=== PATIENT | female | born 1980 | race Two or more races ===

== ENCOUNTER 2025-06-24 08:26 | Emergency (ER) | payer MEDICAID, SELFPAY ==
--- NOTE | 2025-06-24 08:44 | XR_ITS ---
Examination: Pelvic ultrasound, transabdominal, complete Technique: Transabdominal ultrasound of the pelvis performed using grayscale imaging Date and time of exam: June 24, 2025, 1212 hours INDICATIONS: Right lower abdominal pain beginning 2 days ago, hysterectomy history FINDINGS: Absent uterus Ovaries obscured by bowel gas IMPRESSION: Limited study Ovaries obscured by bowel gas
[2025-06-24 08:45] VITALS: BP 126/86; PULSE 73; RESP 16; TEMP 36.5; O2SAT 99
--- NOTE | 2025-06-24 09:02 | PD.EDABDPN ---
ED Abdominal Pain RME/HPI General Chief Complaint: Abdominal Pain Stated complaint: RT SIDE ABD PAIN Time seen by provider: 06/24/25 08:27 Arrival date/time: 06/24/25 08:26 45-year-old female with a history of hysterectomy presents to the emergency room with a chief complaint of right pelvic and abdominal pain x 5 days Source: patient Mode of arrival: ambulatory Limitations: no limitations Related Data Home Medications ?Medication ?Instructions ?Recorded ?Confirmed norgestrel 0.3 mg-ethinyl 1 tab PO QDAY 03/29/23 03/29/23 estradiol 30 mcg tablet (Cr (28)) Previous Rx's ?Medication ?Instructions ?Recorded acetaminophen 300 mg-codeine 15 mg 1 tab PO BID PRN pain #14 tabs 03/31/23 tablet acetaminophen 300 mg-codeine 15 mg 1 tab PO Q8H PRN pain #14 tabs 03/31/23 tablet acetaminophen 650 mg 650 mg PO Q12H #20 tabs 03/31/23 tablet,extended release acetaminophen 650 mg 650 mg PO Q12H #30 tabs 03/31/23 tablet,extended release docusate sodium 100 mg capsule 100 mg PO BID #30 caps 03/31/23 (Colace) docusate sodium 100 mg capsule 100 mg PO BID #30 caps 03/31/23 (Colace) doxycycline monohydrate 100 mg 100 mg PO BID #30 caps 03/31/23 capsule doxycycline monohydrate 100 mg 100 mg PO BID #30 caps 03/31/23 capsule ibuprofen 800 mg tablet 800 mg PO Q8H PRN pain #30 tabs 03/31/23 ibuprofen 800 mg tablet 800 mg PO Q8H PRN pain #30 tabs 03/31/23 metronidazole 500 mg tablet 500 mg PO BID #30 tabs 03/31/23 metronidazole 500 mg tablet 500 mg PO Q12H #30 tabs 03/31/23 metronidazole 500 mg tablet 500 mg PO Q12H #30 tabs 03/31/23 ondansetron 4 mg disintegrating 4 mg PO Q8H PRN nausea and 03/31/23 tablet vomiting #14 tabs Allergies Allergy/AdvReac Type Severity Reaction Status Date / Time No Known Allergies Allergy Verified 06/24/25 08:28 Review of Systems Review of Systems Systems Reviewed: All systems reviewed, normal except as documented Constitutional Constitutional: Reports system reviewed and no additional complaints, except as documented, Denies fatigue, Denies fever(s), Denies headache(s) and Denies weakness Eyes Eyes: Reports system reviewed and no additional complaints, except as documented, Denies blurry vision and Denies change in vision ENT Ears, Nose, Mouth, and Throat: Reports system reviewed and no additional complaints, except as documented, Denies otalgia, Denies headache(s), Denies nasal congestion, Denies throat swelling and Denies vertigo Cardiovascular Cardiovascular: Reports system reviewed and no additional complaints, except as documented, Denies chest pain, Denies dyspnea and Denies dyspnea on exertion Respiratory Respiratory: Reports system reviewed and no additional complaints, except as documented, Denies chest congestion, Denies cough, Denies dyspnea, Denies dyspnea on exertion and Denies wheezing Gastrointestinal Gastrointestinal: Reports system reviewed and no additional complaints, except as documented, Reports abdominal pain, Reports cramping, Reports nausea and Denies vomiting Genitourinary Genitourinary: Reports system reviewed and no additional complaints, except as documented, Denies abnormal vaginal bleeding, Reports dysuria and Reports pelvic pain Musculoskeletal Musculoskeletal: Reports system reviewed and no additional complaints, except as documented and Denies back pain Integumentary/Breasts Skin/Breast: Reports system reviewed and no additional complaints, except as documented and Denies wounds Neurologic Neurologic: Reports system reviewed and no additional complaints, except as documented, Denies confusion, Denies headache(s), Denies lack of coordination, Denies vertigo and Denies weakness Psychiatric Psychiatric: Reports system reviewed and no additional complaints, except as documented, Denies anxiety, Denies confusion, Denies depression, Denies paranoia, Denies suicidal ideation and Denies tactile hallucinations Endocrine Endocrine: Reports system reviewed and no additional complaints, except as documented and Denies fatigue Hematologic/Lymphatic Hematologic/Lymphatic: Reports system reviewed and no additional complaints, except as documented and Denies lymphadenopathy Allergic/Immunologic Allergic/Immunologic: Reports system reviewed and no additional complaints, except as documented, Denies throat swelling, Denies urticaria and Denies wheezing Past Medical History Past Medical History NEUROLOGIC: Negative Neurological Disorders, Cerebrovascular Accident, Transient Ischemic Attacks (TIA), Dementia, Alzheimer's Disease, Parkinson's Disease, Brain Tumor, Meningitis, Seizures, Epilepsy, Multiple Sclerosis, Cerebral Palsy, Amyotrophic Lateral Sclerosis (ALS/No Gehrig's), Guillain-Red Lion Syndrome, Spina Bifida, Paralysis, Peripheral Neuropathy, Londono's Palsy, Subdural Hematoma, Migraine, Head Trauma, Spinal Cord Injury or Traumatic Brain Injury CARDIAC: Negative Cardiac Disorders, Myocardial Infarction, Cardiac Arrhythmia, Atrial Fibrillation, Angina, Heart Murmur, Coronary Artery Disease, Atherosclerotic Heart Disease, Peripheral Vascular Disease, Hypercholesterolemia, Aneurysm, Congestive Heart Failure, Congenital Heart Disease, Valvular Heart Disease, Rheumatic Fever, Cardiomyopathy, Edema, Pericarditis, Cellulitis, Deep Vein Thrombosis, Hypertension, Hypotension or Varicose Veins RESPIRATORY: Negative Chronic Obstructive Pulmonary Disease (COPD), Asthma, Bronchitis, Emphysema, Pneumonia, Pulmonary Fibrosis, Cystic Fibrosis, Tuberculosis, Pulmonary Embolism, Pulmonary Edema or Sleep Apnea GASTROINTESTINAL: Negative Gastrointestinal Disorders, Hepatitis, Cirrhosis, Pancreatitis, Celiac Disease, Gall Bladder Disease, Gastrointestinal Bleed, Esophageal Varices, Mcneill's Esophagus, Colitis, Ulcerative Colitis, Diverticulitis, Diverticulosis, Ulcer, Colorectal Cancer, Irritable Bowel, Crohn's Disease, Obstructive Bowel, Hiatal Hernia, Hemorrhoids, Gastroesophageal Reflux Disease or Obesity GENITOURINARY: Positive Genitourinary Disorders and Kidney Stones; Negative Renal Disease, Polycystic Kidney Disease, Neurogenic Bladder, Inguinal Hernia, Dialysis, Prostate Cancer or Benign Prostatic Hyperplasia REPRODUCTIVE: Positive Previous Pregnancies; Negative Breast Cancer, Endometriosis, Genital Herpes, Gonorrhea, Pelvic Inflammatory Disease, Syphilis, Testicular Cancer or Uterine Prolapse MUSCULOSKELETAL: Negative Musculoskeletal Disorders, Muscular Dystrophy, Myasthenia Gravis, Marfan's Syndrome, Bone Cancer, Arthritis, Rheumatoid Arthritis, Osteoporosis, Degenerative Disk Disease, Gout, Scoliosis, Carpal Tunnel Syndrome, Fibromyalgia, Fractures, Degenerative Joint Disease, Osteomyelitis or Poliovirus ENT: Negative Cataracts, Glaucoma, Blind, Retinal Detachment, Macular Degeneration, Ear Infection, Deafness, Head Trauma or Eye Prosthesis ENDOCRINE: Negative Endocrine Disorders, Diabetes Mellitus Type 1, Diabetes Mellitus Type 2, Hypoglycemia, Renault's Syndrome, Noe's Disease, Hyperthyroidism, Hypothyroidism, Parathyroid Disease, Pituitary Disease, Systemic Lupus Erythematosus, Syndrome of Inappropriate Antidiuretic Hormone (SIADH), Adrenal Disease or Graves' Disease HEMATOLOGIC: Negative Blood Disorders, Anemia, Leukemia, Hemophilia, Thalassemia, Sickle Cell Disease or Clotting Problems PSYCHO/SOCIAL: Negative Psychiatric Problems, Schizophrenia, Recreational Drug Use, Bipolar Disorder, Depression, Anxiety, Behavior Problems, Self-Mutilation, Attention Deficit Disorder, Attention Deficit Hyperactivity Disorder, Depression, Post Traumatic Stress Disorder or Eating Disorder OTHER HISTORY: Positive Chicken Pox and Measles; Negative Hospitalization, Autoimmune Disease, Down Syndrome, Autism, Developmental Delay, Shingles, Falls, Blood Transfusions, Blood Transfusion Reaction, Anesthesia Reactions, Organ Transplant, Chemotherapy, Radiation Therapy, Hyperbaric Therapy, MRSA, VRSA, Vancomycin-Resistant Enterococci, Human Immunodeficiency Virus (HIV), Mumps, Rubella (Br[place] Measles), Pertussis, Clostridium Difficile, Cancer, Breast Cancer, Cervical Cancer, Colorectal Cancer, Lung Cancer, Ovarian Cancer, Prostate Cancer or Testicular Cancer Family History FAMILY HISTORY: Positive Family Cardiac Disorders and Family Surgery; Negative Family Psychiatric Problems, Family Respiratory Disorders, Family Gastrointestinal Problems, Family Cancer or Family Anesthesia Reaction Surgical History SURGICAL: Positive Arthroscopy (left knee), Hysterectomy and Tubal Ligation; Negative Cardiac Surgery, Open Heart Surgery, Coronary Artery Bypass Graft, Valve Replacement, Vascular Surgery, Coronary Stent, Cardiac Catheterization, Pacemaker, Angiogram, Endocrine Surgery, Thyroidectomy, Ear Surgery, Tympanostomy Tube, Eye Surgery, Nose Surgery, Oral Surgery, Tonsillectomy, Adenoidectomy, Cochlear Implant, Corneal Transplant, Throat Surgery, Abdominal Surgery, Tracheostomy, Gastric Bypass Surgery, Gastrostomy, Bowel Surgery, Nephrectomy, Transurethral Resection, Joint Replacement, Amputation, Open Reduction Internal Fixation, Neurologic Surgery, Brain Shunt, Mastectomy, Lumpectomy, Section or Organ Transplant Social History SMOKING STATUS: Never smoker ED Exam General Limitations: Present no limitations General appearance: Present alert and in no apparent distress Head Head exam: Present atraumatic Eye Eye exam: Present normal appearance, PERRL and EOMI ENT ENT exam: Present normal exam, normal oropharynx and mucous membranes moist Neck Neck exam: Present normal inspection, full ROM and trachea midline Chest Chest inspection: Present normal inspection and symmetric chest wall rise Respiratory Respiratory exam: Present normal lung sounds bilaterally Cardiovascular Cardiovascular exam: Present regular rate, normal rhythm and normal heart sounds Abdominal Exam Abdominal exam: Present soft, tenderness and normal bowel sounds; Absent Raines's sign or tenderness at McBurney's Point Abdominal tenderness: Present RLQ and mild Extremities Exam Extremities exam: Present normal inspection and full ROM Back Exam Back exam: Present normal inspection and full ROM Neurological Exam Neurological exam: Present alert, oriented X3 and CN II-XII intact Psychiatric Psychiatric exam: Present normal affect and normal mood Skin Skin exam: Present warm, dry, intact and normal color Course Quality Measures none Orders Category Date Time Status US abdomen limited Stat Exams 06/24/25 09:03 Completed US pelvic complete Stat Exams 06/24/25 08:44 Completed CBC Stat Lab 06/24/25 09:25 Completed CMP [Comprehensive Metabolic Panel] Stat Lab 06/24/25 09:25 Completed HCG Qualitative,Urine Stat Lab 06/24/25 08:52 Completed Lipase Stat Lab 06/24/25 09:25 Completed UA [Urinalysis] Stat Lab 06/24/25 08:52 Completed Urine Culture Stat Lab 06/24/25 08:52 Received Vital Signs Vital signs: Vital Signs Temperature 97.7 F 06/24/25 08:45 Pulse Rate 73 06/24/25 08:45 Respiratory Rate 16 06/24/25 08:45 Blood Pressure 126/86 H 06/24/25 08:45 Pulse Oximetry (%) 99 06/24/25 08:45 Oxygen Delivery Method Room Air 06/24/25 08:45 Abdominal Pain MDM MDM Narrative MDM Narrative:: 45-year-old female with a history of hysterectomy presents to the emergency room with a chief complaint of right pelvic and abdominal pain x 5 days Patient is hemodynamically stable and in no apparent distress Physical examination shows right pelvic tenderness with palpation. There is no right lower quadrant tenderness or any tenderness to McBurney's point with palpation. Ultrasound of the pelvis was completed and shows no acute findings. The patient has a history of a hysterectomy. CBC CMP were all within normal limits. Urinalysis was within normal limits Patient was discharged and educated to follow-up with primary care provider in the next 24 to 48 hours and return to the emergency room for any evidence of worsening signs or symptoms Patient data External records reviewed:: [facility] previous records Clinical information provided by:: patient Social determinants that could affect healthcare access:: none Patient has the following chronic illnesses:: No chronic illness How is presenting disease/condition affected by chronic disease/condition?: no chronic disease Evaluation data The following diagnostics were reviewed and interpreted by me:: lab results and radiology exam(s) Lab and/or radiology exams considered but not ordered:: Labs and radiology exams considered and ordered Interpretation Summary: Ultrasound pelvis-FINDINGS: Absent uterus Ovaries obscured by bowel gas IMPRESSION: Limited study Ovaries obscured by bowel gas Ultrasound abdomen-Findings: No sonographic visualization appendix IMPRESSION: No sonographic visualization appendix Medications / Prescriptions Medications or Prescriptions considered but not ordered:: No medication Medication administrations:: No medication given Consultations Consultation(s) initiated? (list below): No Diagnosis Differential diagnosis abdominal pain: abdominal pain, acute appendicitis, constipation, gastroenteritis and other (Pelvic pain) Most likely diagnosis given after review of the tests above:: Pelvic pain Admission Indicated Admission indicated?: not indicated Admission Request Was there a request for admission?: No Disposition Plan Disposition Plan: Discharge Discharge Attestation Discharge Attestation: The patient and all family members were given an opportunity to ask questions and understood the discharge instructions. Discharge instructions specifically effects, indications for sooner follow up or return to the emergency department, and the expected course of current diagnosis. Patient condition: Stable Discharge Plan Plan Patient Disposition: HOME (Self Care) Discharge Disposition comment: Stable Prescriptions/Referrals Prescriptions/Med Rec: No Action Cr (28) 0.3-30 mg-mcg Tablet 1 tab PO QDAY acetaminophen 650 mg tablet extended release 650 mg PO Q12H Qty: 20 0RF acetaminophen-codeine 300-15 mg tablet 1 tab PO Q8H PRN (Reason: pain) Qty: 14 0RF ibuprofen 800 mg tablet 800 mg PO Q8H PRN (Reason: pain) Qty: 30 0RF metronidazole 500 mg tablet 500 mg PO Q12H Qty: 30 0RF doxycycline monohydrate 100 mg capsule 100 mg PO BID Qty: 30 0RF docusate sodium [Colace] 100 mg capsule 100 mg PO BID Qty: 30 0RF ondansetron 4 mg tablet,disintegrating 4 mg PO Q8H PRN (Reason: nausea and vomiting) Qty: 14 0RF acetaminophen-codeine 300-15 mg tablet 1 tab PO BID PRN (Reason: pain) Qty: 14 0RF metronidazole 500 mg tablet 500 mg PO BID Qty: 30 0RF doxycycline monohydrate 100 mg capsule 100 mg PO BID Qty: 30 0RF ibuprofen 800 mg tablet 800 mg PO Q8H PRN (Reason: pain) Qty: 30 0RF acetaminophen 650 mg tablet extended release 650 mg PO Q12H Qty: 30 0RF docusate sodium [Colace] 100 mg capsule 100 mg PO BID Qty: 30 0RF metronidazole 500 mg tablet 500 mg PO Q12H Qty: 30 0RF Referrals: Aly Norton MD [Primary Care Provider, Family Practice] - In 1 week Problem List Clinical Impression: Pelvic pain Patient/Caregiver Discharge Instructions Education Materials: ED Pelvic Pain, Unknown Cause Additional Instructions: Por favor, acuda a cohen m?dico de cabecera en las pr?ximas 24 a 48 horas. Las ecograf?as no mostraron hallazgos agudos. Los an?lisis de rona y orina se encuentran dentro de los l?mites normales. Si observa alg?n empeoramiento de los signos o s?ntomas, regrese inmediatamente a urgencias. Print Language: Pashto Stand Alone Forms: Rocio Award Info., Work/School Release, Patient Portal Info Letter PA/DISTILLATION OPERATOR HELPER Supervising Physician PA/DISTILLATION OPERATOR HELPER Supervising Physician: Dr. Benavides
--- NOTE | 2025-06-24 09:03 | XR_ITS ---
Examination: Abdomen sonogram, Limited Date and time of exam: June 24, 2025, 11:00 a.m. INDICATIONS: Right lower abdominal pain beginning 2 days ago Technique: Real-time welch scale transabdominal sonographic images of the abdomen obtained. Findings: No sonographic visualization appendix IMPRESSION: No sonographic visualization appendix
[2025-06-24 09:13] LABS: Collection Type, Urine Clean Catch; WBC,Urine 0 /hpf (0-5)
[2025-06-24 09:23] LABS: HCG Qualitative,Urine Negative
[2025-06-24 09:25] LABS: Bilirubin,Urine Negative (Negative); Blood,Urine 1+ (Negative); Clarity,Urine Clear (Clear/Hazy); Color,Urine Lt-Yellow (Lt Yel-Yel); Glucose, Urine Negative (Negative); Ketones,Urine Negative (Negative); Leukocyte Esterase,Urine Negative (Negative); Nitrite,Urine Negative (Negative); PH,Urine 6.0 (5.0-7.0); Protein,Urine Negative (Neg - Trace); RBC,Urine 3 /hpf (0-3); Specific Gravity,Urine 1.014 (1.001-1.035); Squamous Epithelial Cell,Urine 2 /hpf (0-5); Urobilinogen,Urine Negative mg/dL (0.0-1.0)
[2025-06-24 09:45] LABS: Basophils # (Auto) 0.0 Thou/mm3 (0.0-0.2); Basophils % (Auto) 1 % (0-2.5); Eosinophils # (Auto) 0.0 Thou/mm3 (0.0-0.5); Eosinophils % (Auto) 1 % (0-10); Hematocrit 40.1 % (36.0-46.0); Hemoglobin 13.7 g/dL (12.0-16.0); Immature Granulocytes Auto 0.01 Thou/mm3 (0.00-0.00); Lymphocytes # (Auto) 1.2 Thou/mm3 (1.0-4.8); Lymphocytes % (Auto) 24 % (10-50); Mean Corpuscular HGB Conc 34.2 g/dl (31.0-37.0); Mean Corpuscular Hemoglobin 32.5 pg (25.0-35.0); Mean Corpuscular Volume 95 fL (80-100); Monocytes # (Auto) 0.3 Thou/mm3 (0.0-0.8); Monocytes % (Auto) 6 % (0-12); Neutrophils # (Auto) 3.5 Thou/mm3 (1.8-7.7); Neutrophils % (Auto) 69 % (37-80); Nucleated Red Blood Cell # 0.00 Thou/mm3 (0.00-0.00); Nucleated Red Blood Cell % 0 /100 WBC (0); Platelet Count 265 Thou/mm3 (140-440); RDW Standard Deviation 44.0 fL (36.4-46.3); Red Blood Count 4.22 Miln/mm3 (4.00-5.20); White Blood Count 5.1 Thou/mm3 (3.6-11.0)
[2025-06-24 10:11] LABS: Alanine Aminotransferase 12 U/L (10-49); Albumin, Serum 4.9 gm/dL (3.5-5.0); Albumin/Globulin Ratio 2.0 (1.2-2.2); Alkaline Phosphatase 90 U/L (46-116); Anion Gap 8 (7-16); Aspartate Amino Transferase 19 U/L (0-34); BUN/Creatinine Ratio 17 Ratio (12-20); Bilirubin,Total 0.6 mg/dL (0.3-1.2); Blood Urea Nitrogen 10 mg/dL (9-23); Calcium 9.4 mg/dL (8.3-10.6); Calcium (Corrected) 9.4 mg/dL (8.5-10.1); Carbon Dioxide 25.7 mMol/L (20.0-31.0); Chloride 108 mMol/L (98-107); Creatinine (Component) 0.6 mg/dL (0.6-1.3); Estimated Creatinine Clearance 76.5 mL/min (>60); Globulin 2.4 gm/dL (2.3-3.5); Glucose 98 mg/dL (74-106); Lipase 38 U/L (12-53); Osmolality,Calculated 282 (275-295); Potassium 4.3 mMol/L (3.4-5.1); Sodium 142 mMol/L (136-145); Total Protein 7.3 gm/dL (5.7-8.2); eGFR > 60 See Note
== END 2025-06-24 11:36 | disposition home or self-care (01) ==
PROVIDERS: Nurse Practitioner Family; Emergency Provider Emergency Medicine; PCP Family Medicine
DX: R10.20 Pelvic and perineal pain unspecified side (principal)
CPT/HCPCS: 36415; 76705; 76856; 80053; 81001; 81025; 83690; 85025; 87086; 99283

== ENCOUNTER 2025-07-19 10:34 | Emergency (ER) | payer MEDICAID, SELFPAY ==
--- NOTE | 2025-07-19 10:40 | EKG_ITS ---
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
[2025-07-19 10:52] VITALS: BP 152/88; PULSE 78; RESP 18; TEMP 37.1; O2SAT 98; BMI 23.1
--- NOTE | 2025-07-19 10:55 | XR_ITS ---
EXAMINATION: PA chest single view TECHNIQUE: Upright PA chest single view Date and time: July 19, 2025, 11:59 a.m. INDICATIONS: Chest pain and dizziness today. FINDINGS: Mild prominence left ventricle No pneumonia or pulmonary edema Mild osteopenia IMPRESSION: No pneumonia or pulmonary edema
--- NOTE | 2025-07-19 10:55 | XR_ITS ---
Examination: Abdomen sonogram, Limited Date and time of exam: 07/19/2025 at 11:08 a.m. INDICATION: Epigastric pain and chest pain beginning to Technique: Real-time welch scale transabdominal sonographic images of the upper abdomen obtained. Findings: The gallbladder is well seen. There is an extremely tiny 3 mm diameter echogenic nodular density adherent to the anterior wall of the gallbladder this is most consistent with a small gallbladder polyp, of no concern no stones are seen gallbladder wall appears normal. Common bile duct measures normal at 0.18 cm the size and the directional color flow within the portal vein and hepatic veins is normal. There is very nice visualization of the head and of about two thirds of the body of the pancreas, which appear normal. The size and configuration of the liver are normal. I do not believe that there is any significant abnormal increased echogenicity, hence I tend to doubt that there is any fatty infiltration. The upper two thirds of the right kidney are visualized and no abnormalities are seen. There is no ascites IMPRESSION: 1. There is a tiny 3 mm diameter cholesterol polyp along the ventral margin of the gallbladder wall, of no concern 2. No gallstones are identified 3. The study is otherwise entirely normal
--- NOTE | 2025-07-19 10:56 | PD.EDCHEST ---
ED Chest Pain RME/HPI General Chief Complaint: Chest Pain Stated Complaint: CHEST PAIN X4 HRS Time Seen by Provider: 07/19/25 10:55 Arrival date/time: 07/19/25 10:34 RME / HPI RME / HPI narrative: 45-year-old female with no known past medical history presents to the ER complaining of epigastric pain rating to her chest which is burning in nature since 6 AM radiating to her left shoulder. Denies any shortness of breath, nausea, vomiting, fever, diarrhea, dysuria. Denies any family history of early cardiac disease. Denies any recent travel, surgeries, immobilizations, history of leg swelling, blood clots. Denies any drinking, smoking, drug use. Related Data Home Medications ?Medication ?Instructions ?Recorded ?Confirmed norgestrel 0.3 mg-ethinyl 1 tab PO QDAY 03/29/23 03/29/23 estradiol 30 mcg tablet (Cr (28)) Previous Rx's ?Medication ?Instructions ?Recorded acetaminophen 300 mg-codeine 15 mg 1 tab PO BID PRN pain #14 tabs 03/31/23 tablet acetaminophen 300 mg-codeine 15 mg 1 tab PO Q8H PRN pain #14 tabs 03/31/23 tablet acetaminophen 650 mg 650 mg PO Q12H #20 tabs 03/31/23 tablet,extended release acetaminophen 650 mg 650 mg PO Q12H #30 tabs 03/31/23 tablet,extended release docusate sodium 100 mg capsule 100 mg PO BID #30 caps 03/31/23 (Colace) docusate sodium 100 mg capsule 100 mg PO BID #30 caps 03/31/23 (Colace) doxycycline monohydrate 100 mg 100 mg PO BID #30 caps 03/31/23 capsule doxycycline monohydrate 100 mg 100 mg PO BID #30 caps 03/31/23 capsule ibuprofen 800 mg tablet 800 mg PO Q8H PRN pain #30 tabs 03/31/23 ibuprofen 800 mg tablet 800 mg PO Q8H PRN pain #30 tabs 03/31/23 metronidazole 500 mg tablet 500 mg PO BID #30 tabs 03/31/23 metronidazole 500 mg tablet 500 mg PO Q12H #30 tabs 03/31/23 metronidazole 500 mg tablet 500 mg PO Q12H #30 tabs 03/31/23 ondansetron 4 mg disintegrating 4 mg PO Q8H PRN nausea and 03/31/23 tablet vomiting #14 tabs pantoprazole 40 mg tablet,delayed 40 mg PO QDAY #30 tabs 07/19/25 release (Protonix) Allergies Allergy/AdvReac Type Severity Reaction Status Date / Time No Known Allergies Allergy Verified 06/24/25 08:28 ED Exam Narrative Physical exam: Constitutional: Patient alert and oriented. Well appearing. No acute distress. Not toxic appearing. Head: Normocephalic, atraumatic. Eyes: Periorbital regions bilaterally normal to inspection. Conjunctiva clear bilaterally. Sclera anicteric bilaterally. Pupils equal, round, reactive to light bilaterally. Extraocular movements intact bilaterally. Mouth/Throat: Mucous membranes moist. No stridor or muffled voice. No trismus. Handling secretions without difficulty. Airway widely patent. Neck: Supple. Trachea midline. No JVD. No nuchal rigidity. Normal range of motion. Respiratory: Normal effort. No accessory muscle use or respiratory distress. Lungs clear to auscultation bilaterally without rhonchi, wheezes, or crackles. Cardiovascular: RRR. Normal S1/S2. No murmurs or rubs. Radial pulses intact bilaterally. Abdomen: Soft. Non-distended. Non-tender throughout. No pulsatile mass. No guarding or rebound. Negative Raines?s sign. Negative McBurney?s point tenderness. Negative Rovsing?s. Back: No midline tenderness or step-offs. No CVA tenderness to palpation bilaterally. Upper Extremities: No gross deformities. Lower Extremities: No gross deformities. No edema or calf tenderness. Neuro: Speech normal. No gross motor or sensory deficits to upper or lower extremities bilaterally. GCS 15. CN II?XII grossly intact. Skin: Warm, dry, normal color. Psych: Normal affect. Cooperative. Normal insight. Course Quality Measures none Orders Category Date Time Status EKG (ED ONLY) *Do not use* NOW Care 07/19/25 10:40 Completed EKG (ED ONLY) *Do not use* NOW Care 07/19/25 16:30 Active CXR [XR chest 1V] Stat Exams 07/19/25 10:55 Completed EKG (ED Only) Stat Exams 07/19/25 10:40 Draft EKG (ED Only) Stat Exams 07/19/25 16:30 Stop Req US gall bladder Stat Exams 07/19/25 10:55 Completed CBC Stat Lab 07/19/25 11:40 Completed CMP [Comprehensive Metabolic Panel] Stat Lab 07/19/25 11:40 Completed HCG Qualitative,Urine Stat Lab 07/19/25 13:11 Completed INR [Prothrombin Time with INR] Stat Lab 07/19/25 11:40 Completed Lipase Stat Lab 07/19/25 11:40 Completed Troponin I Stat Lab 07/19/25 11:40 Completed Troponin I Stat Lab 07/19/25 14:37 Completed UA, C/S IF [Urinalysis, C/S if Indicated] Stat Lab 07/19/25 13:11 Completed Lidocaine 2% Viscous [Xylocaine 2% Viscous] Med 07/19/25 10:55 Discontinued 15 ml PO X1 ONE Ondansetron Odt [Zofran Odt] Med 07/19/25 10:55 Discontinued 4 mg PO X1 ONE mg Hyd/Al Hyd/Aisha Susp [Maalox Susp] Med 07/19/25 10:55 Discontinued 30 ml PO X1 ONE Reevaluation(s) Reevaluation #1: At the time of reassessment prior to discharge, the patient remains alert and oriented ?3 with GCS 15. Vitals are normal, pain is controlled, and the patient is tolerating oral intake without nausea or vomiting. The patient is agreeable to discharge and verbalizes understanding of the diagnosis, studies, treatment plan, medications (including side effects/precautions), and strict ER return precautions as discussed in the ED. All concerns were addressed, and the patient is comfortable with the plan. Time: 18:01 Vital Signs Vital signs: Vital Signs Temperature 98.7 F 07/19/25 10:52 Pulse Rate 78 07/19/25 10:52 Respiratory Rate 18 07/19/25 10:52 Blood Pressure 152/88 H 07/19/25 10:52 Pulse Oximetry (%) 98 07/19/25 10:52 Oxygen Delivery Method Room Air 07/19/25 10:52 PROCEDURES: EKG Interpretation #1: Date of EK07/19/25 Time of EK:49 Rate: 78 Interpretation: Interpreted by me EKG Impression: Normal sinus rhythm and Normal axis Additional EKG comment: No ST elevation, nonspecific ST abnormalities Chest Pain MDM Narrative MDM Narrative:: MDM The patient presents with chest pain. Differential diagnosis includes musculoskeletal chest pain, GERD, bronchial pleurisy, costochondritis, and thoracic radiculopathy. And I suspect patient's symptoms are most likely related to GERD as symptoms completely improved after GI cocktail Less likely etiologies include: PE: Wells low risk, PERC negative. ACS: HEART Score low risk, suggesting low probability of major adverse cardiac event in the next 6 weeks. And troponin negative x 2 heart score is 2. Aortic Dissection: Unlikely given palpable pulses, warm extremities bilaterally, and no radiation of pain. Tamponade: Unlikely given absence of hypotension, muffled heart sounds, JVD, friction rub, narrow pulse pressure ?30, low-voltage EKG, or enlarged cardiac silhouette. Endocarditis: Unlikely as no Feldman criteria present (Laughlin spots, splinter hemorrhages, Osler nodes). CHF: Unlikely given no JVD, peripheral edema, or orthopnea. The patient is clinically well-appearing and stable. Evaluation today does not suggest cardiac ischemia, pulmonary embolism, aortic dissection, or other life-threatening etiology. These diagnoses were considered and excluded clinically and with appropriate studies. Nonetheless, it is understood by both patient and provider that no evaluation can entirely exclude such conditions. Admission was considered but is not indicated based on today?s evaluation and low-risk stratification. The patient is strongly encouraged to follow up with their PMD and/or assistant professor of business within the next 1-2 days. Strict ER return precautions advised for any continued, worsening, or new symptoms or any concerns at all. Patient data External records reviewed:: [facility] previous records Clinical information provided by:: patient Social determinants that could affect healthcare access:: none Patient has the following chronic illnesses:: As noted How is presenting disease/condition affected by chronic disease/condition?: uneffected by Evaluation data The following diagnostics were reviewed and interpreted by me:: lab results, radiology exam(s) and EKG tracing(s) Lab and/or radiology exams considered but not ordered:: Additional Labs and radiology considered, but not ordered as they were not clinically indicated at this time. Interpretation Summary: Labs without severe metabolic or electrolyte abnormality and serial troponins negative x 2 Ketones and blood noted in urine EKG without acute ischemia or arrhythmia, chest x-ray without acute cardiopulmonary abnormality, gallbladder ultrasound without acute findings however there is a 3 mm cholesterol polyp Medications / Prescriptions Medications or Prescriptions considered but not ordered:: I ordered medications based on the patient?s clinical needs and assessment, as documented in the chart. For medications not prescribed, they were not indicated for the patient's current condition, and I determined they were unnecessary at this time to avoid potential risks or complications. Medication administrations:: Medication Administration History Discontinued Medications Al Hydrox/Mg Hydrox/Simethicone (Mg Hyd/Al Hyd/Aisha (Maalox Reg) Susp 30 Ml Udc) 30 ml PO X1 ONE Stop: 07/19/25 10:56 Last Admin: 07/19/25 11:29 Dose: 30 ml Documented By: Lidocaine HCl (Lidocaine Viscous 2% 15 Ml Udc) 15 ml PO X1 ONE Stop: 07/19/25 10:56 Last Admin: 07/19/25 11:29 Dose: 15 ml Documented By: Ondansetron HCl (Ondansetron Odt 4 Mg Tabrap) 4 mg PO X1 ONE; Protocol Stop: 07/19/25 10:56 Last Admin: 07/19/25 11:28 Dose: 4 mg Documented By: As noted Consultations Consultation(s) initiated? (list below): No Consultation #1 (Physician, Specialty, Details): Case plan discussed with agreed upon Dr. Victor Time: 05:25 Diagnosis Chest Pain Differential Diagnosis: chest pain, biliary colic and other Most likely diagnosis given after review of the tests above:: GERD versus chest pain of unclear etiology Admission Indicated Admission indicated?: not indicated Admission Request Was there a request for admission?: No Disposition Plan Disposition Plan: Discharge Discharge Attestation Discharge Attestation: The patient and all family members were given an opportunity to ask questions and understood the discharge instructions. Discharge instructions specifically effects, indications for sooner follow up or return to the emergency department, and the expected course of current diagnosis. Patient condition: Stable Discharge Plan Plan Patient Disposition: HOME (Self Care) Patient condition on transfer: Stable Prescriptions/Referrals Prescriptions/Med Rec: New pantoprazole [Protonix] 40 mg tablet,delayed release (DR/EC) 40 mg PO QDAY Qty: 30 0RF No Action Cryselle (28) 0.3-30 mg-mcg Tablet 1 tab PO QDAY acetaminophen 650 mg tablet extended release 650 mg PO Q12H Qty: 20 0RF acetaminophen-codeine 300-15 mg tablet 1 tab PO Q8H PRN (Reason: pain) Qty: 14 0RF ibuprofen 800 mg tablet 800 mg PO Q8H PRN (Reason: pain) Qty: 30 0RF metronidazole 500 mg tablet 500 mg PO Q12H Qty: 30 0RF doxycycline monohydrate 100 mg capsule 100 mg PO BID Qty: 30 0RF docusate sodium [Colace] 100 mg capsule 100 mg PO BID Qty: 30 0RF ondansetron 4 mg tablet,disintegrating 4 mg PO Q8H PRN (Reason: nausea and vomiting) Qty: 14 0RF acetaminophen-codeine 300-15 mg tablet 1 tab PO BID PRN (Reason: pain) Qty: 14 0RF metronidazole 500 mg tablet 500 mg PO BID Qty: 30 0RF doxycycline monohydrate 100 mg capsule 100 mg PO BID Qty: 30 0RF ibuprofen 800 mg tablet 800 mg PO Q8H PRN (Reason: pain) Qty: 30 0RF acetaminophen 650 mg tablet extended release 650 mg PO Q12H Qty: 30 0RF docusate sodium [Colace] 100 mg capsule 100 mg PO BID Qty: 30 0RF metronidazole 500 mg tablet 500 mg PO Q12H Qty: 30 0RF Referrals: Aly Norton MD [Primary Care Provider, Family Practice] - In 1 week Problem List Clinical Impression: Chest pain Patient/Caregiver Discharge Instructions Education Materials: ED Chest Pain, Uncertain Cause Additional Instructions: Follow up with your primary medical doctor within 48 hours. Return to the Emergency Room immediately for any new, worsening, continuing symptoms or any concerns at all. Return to the Emergency Room within 48 hours if you are unable to follow up with your primary medical doctor within 48 hours. Follow-up with a assistant professor of business this week. Print Language: Macanese Stand Alone Forms: Rocio Award Info., Patient Portal Info Letter PA/ASSOCIATE DEAN Supervising Physician PA/ASSOCIATE DEAN Supervising Physician: Dr. Victor
[2025-07-19] MEDS: ONDANSETRON ODT 4 MG TABRAP PO (11:28)
[2025-07-19] MEDS: MG HYD/AL HYD/SIME (Maalox Reg) SUSP 30 ML UDC PO (11:29)
[2025-07-19] MEDS: LIDOCAINE VISCOUS 2% 15 ML UDC PO (11:29)
[2025-07-19 12:04] LABS: Basophils # (Auto) 0.0 Thou/mm3 (0.0-0.2); Basophils % (Auto) 0 % (0-2.5); Eosinophils # (Auto) 0.0 Thou/mm3 (0.0-0.5); Eosinophils % (Auto) 0 % (0-10); Hematocrit 37.8 % (36.0-46.0); Hemoglobin 13.0 g/dL (12.0-16.0); Immature Granulocytes Auto 0.02 Thou/mm3 (0.00-0.00); Lymphocytes # (Auto) 1.3 Thou/mm3 (1.0-4.8); Lymphocytes % (Auto) 16 % (10-50); Mean Corpuscular HGB Conc 34.4 g/dl (31.0-37.0); Mean Corpuscular Hemoglobin 32.0 pg (25.0-35.0); Mean Corpuscular Volume 93 fL (80-100); Monocytes # (Auto) 0.6 Thou/mm3 (0.0-0.8); Monocytes % (Auto) 7 % (0-12); Neutrophils # (Auto) 6.2 Thou/mm3 (1.8-7.7); Neutrophils % (Auto) 76 % (37-80); Nucleated Red Blood Cell # 0.00 Thou/mm3 (0.00-0.00); Nucleated Red Blood Cell % 0 /100 WBC (0); Platelet Count 270 Thou/mm3 (140-440); RDW Standard Deviation 43.2 fL (36.4-46.3); Red Blood Count 4.06 Miln/mm3 (4.00-5.20); White Blood Count 8.2 Thou/mm3 (3.6-11.0)
[2025-07-19 12:24] LABS: INR 1.0 (0.9-1.3); Prothrombin Time 10.2 Seconds (9.0-12.2)
[2025-07-19 12:48] LABS: Alanine Aminotransferase 10 U/L (10-49); Albumin, Serum 4.9 gm/dL (3.5-5.0); Albumin/Globulin Ratio 1.7 (1.2-2.2); Alkaline Phosphatase 91 U/L (46-116); Anion Gap 11 (7-16); Aspartate Amino Transferase 18 U/L (0-34); BUN/Creatinine Ratio 15 Ratio (12-20); Bilirubin,Total 0.6 mg/dL (0.3-1.2); Blood Urea Nitrogen 9 mg/dL (9-23); Calcium 9.7 mg/dL (8.3-10.6); Calcium (Corrected) 9.7 mg/dL (8.5-10.1); Carbon Dioxide 24.5 mMol/L (20.0-31.0); Chloride 106 mMol/L (98-107); Creatinine (Component) 0.6 mg/dL (0.6-1.3); Estimated Creatinine Clearance 72.2 mL/min (>60); Globulin 2.9 gm/dL (2.3-3.5); Glucose 90 mg/dL (74-106); Lipase 33 U/L (12-53); Osmolality,Calculated 279 (275-295); Potassium 4.4 mMol/L (3.4-5.1); Sodium 141 mMol/L (136-145); Total Protein 7.8 gm/dL (5.7-8.2); Troponin I < 0.002 ng/mL (0.0-0.045); eGFR > 60 See Note
[2025-07-19 13:27] LABS: Collection Type, Urine Voided
[2025-07-19 13:30] LABS: Bilirubin,Urine Negative (Negative); Blood,Urine 1+ (Negative); Clarity,Urine Clear (Clear/Hazy); Color,Urine Colorless (Lt Yel-Yel); Culture Indicated,Urine Not Indicated; Glucose, Urine Negative (Negative); Ketones,Urine 1+ (Negative); Leukocyte Esterase,Urine Negative (Negative); Nitrite,Urine Negative (Negative); PH,Urine 6.0 (5.0-7.0); Protein,Urine Negative (Neg - Trace); RBC,Urine 2 /hpf (0-3); Specific Gravity,Urine 1.011 (1.001-1.035); Squamous Epithelial Cell,Urine 1 /hpf (0-5); Urobilinogen,Urine Negative mg/dL (0.0-1.0); WBC,Urine < 1 /hpf (0-5)
[2025-07-19 13:32] LABS: HCG Qualitative,Urine Negative
[2025-07-19 15:28] LABS: Troponin I < 0.020 ng/mL (0.0-0.045)
== END 2025-07-19 18:56 | disposition home or self-care (01) ==
PROVIDERS: Emergency Provider Physician Assistant; PCP Family Medicine
DX: K82.4 Cholesterolosis of gallbladder (principal); R07.9 Chest pain, unspecified; R94.31 Abnormal electrocardiogram [ECG] [EKG]; R11.2 Nausea with vomiting, unspecified
CPT/HCPCS: 36415; 71045; 76705; 80053; 81001; 81025; 83690; 84484; 85025; 85610; 93005; 99283; J3490; Q0162; A9270